=== PATIENT | male | born 1975 | race African-American/Black ===

== ENCOUNTER 2023-12-25 11:17 | Outpatient (CLI) | payer OTHER, SELFPAY ==
[2023-12-25 13:29] LABS: Cholesterol 172 mg/dL (0-200); HDL Direct 34 mg/dL; Triglycerides 100 mg/dL (<150)
[2023-12-25 13:39] LABS: LDL Cholesterol Direct 112 mg/dL
[2023-12-25 14:35] LABS: Hemoglobin A1C 8.8 % (<5.7)
[2023-12-25 14:48] LABS: Creatinine Urine 248.9 mg/dL
[2023-12-25 14:52] LABS: MALB Creatinine Ratio 11.7 mg/g (0-30); Microalbumin Urine Random 29.1 mg/L (0-16.7)
== END 2023-12-25 11:18 | disposition home or self-care (01) ==
LOC: ANHGOSHLAB 11:18
PROVIDERS: PCP Emergency Medicine; Visit Provider Emergency Medicine
DX: E11.69 Type 2 diabetes mellitus with other specified complication (principal); E66.9 Obesity, unspecified
CPT/HCPCS: 36415; 80061; 82043; 83036

== ENCOUNTER 2024-02-15 08:06 | Outpatient (CLI) | payer OTHER, SELFPAY ==
[2024-02-15 11:52] LABS: Alanine Aminotransferase 37 U/L (6-50); Alkaline Phosphatase 75 U/L (38-126); Anion Gap 11 mmol/L (4-12); Aspartate Amino Transferase 62 U/L (17-59); Bilirubin,Total 0.5 mg/dL (0.2-1.3); Blood Urea Nitrogen 11 mg/dL (9-20); Calcium 9.4 mg/dL (8.4-10.2); Carbon Dioxide 26 mmol/L (22-30); Chloride 102 mmol/L (98-107); Estimated Glomerular Filt Rate > 60; Glucose 122 mg/dL (65-110); Potassium 3.7 mmol/L (3.4-5.0); Sodium 139 mmol/L (137-145)
[2024-02-15 14:41] LABS: Hemoglobin A1C 8.7 % (<5.7)
== END 2024-02-15 08:07 | disposition home or self-care (01) ==
LOC: ANHGOSHLAB 08:07
PROVIDERS: PCP Emergency Medicine; Visit Provider Emergency Medicine
DX: E11.69 Type 2 diabetes mellitus with other specified complication (principal); E66.9 Obesity, unspecified
CPT/HCPCS: 36415; 80053; 83036

== ENCOUNTER 2025-03-16 10:02 | Outpatient (CLI) | payer OTHER, SELFPAY ==
[2025-03-16 13:13] LABS: Hematocrit 45.6 % (42.0-52.0); Hemoglobin 14.3 g/dL (14.0-18.0); Immature Granulocyte Percent A 0.3 % (0-0.5); Lymphocytes Absolute Auto 2.68 K/mm3 (0.9-3.2); Mean Corpuscular HGB Conc 31.4 g/dl (32-36); Mean Corpuscular Hemoglobin 27.1 pg (26-34); Mean Corpuscular Volume 86.4 fl (80-100); Nucleated Red Blood Cells Absolute Auto 0.000 K/mm3 (0.0-0.012); Nucleated Red Blood Cells Perc 0.0 % (0.0-0.2); Platelet Count Result 321 k/mm3 (150-375); Red Blood Count 5.28 M/mm3 (4.6-6.20); White Blood Count 8.0 K/mm3 (4.5-10.0)
[2025-03-16 13:17] LABS: Alanine Aminotransferase 22 U/L (6-50); Albumin Level 4.2 g/dL (3.5-5.1); Alkaline Phosphatase 81 U/L (38-126); Anion Gap 7 mmol/L (4-12); Aspartate Amino Transferase 43 U/L (17-59); Bilirubin,Total 0.6 mg/dL (0.2-1.3); Blood Urea Nitrogen 14 mg/dL (9-20); Calcium 9.2 mg/dL (8.4-10.2); Carbon Dioxide 25 mmol/L (22-30); Chloride 105 mmol/L (98-107); Cholesterol 211 mg/dL (0-200); Estimated Glomerular Filt Rate > 60; Glucose 211 mg/dL (65-110); HDL Direct 41 mg/dL; Potassium 4.5 mmol/L (3.4-5.0); Sodium 137 mmol/L (137-145); Total Protein 7.8 g/dL (6.3-8.2); Triglycerides 106 mg/dL (<150)
[2025-03-16 13:21] LABS: Hemoglobin A1C 8.0 % (<5.7)
[2025-03-16 13:45] LABS: MALB Creatinine Ratio 7.3 mg/g (0-30)
[2025-03-16 14:04] LABS: Thyroid Stimulating Hormone 1.530 uIU/mL (0.465-4.680)
== END 2025-03-16 10:03 | disposition home or self-care (01) ==
LOC: ANHGOSHLAB 10:04
PROVIDERS: PCP Nurse Practitioner Family; Visit Provider Nurse Practitioner Family
DX: E78.5 Hyperlipidemia, unspecified (principal); E11.69 Type 2 diabetes mellitus with other specified complication; E66.9 Obesity, unspecified; I10 Essential (primary) hypertension; N52.9 Male erectile dysfunction, unspecified
CPT/HCPCS: 36415; 80053; 80061; 82043; 83036; 84443; 85025